=== PATIENT | female | born 1960 | race American Indian/Alaskan Native ===

== ENCOUNTER 2017-03-03 06:56 | Inpatient (IN) | payer OTHER ==
--- NOTE | 2017-02-27 10:21 | Anesthesia Consultation ---
Anesthesia Consult and Med Hx Date of service: 02/27/17 - Airway Anesthetic Teeth Evaluation: Good (gap in front teeth) Mallampati Class: Class II Intubation Access Assessment: Probably Good - Pulmonary Exam CTA: Yes - Cardiac Exam Cardiac Exam: RRR - Pre-Operative Health Status ASA Pre-Surgery Classification: ASA3 Proposed Anesthetic Plan: Epidural, Spinal, MAC - Pulmonary Hx Smoking: No Hx Asthma: Yes (INHALER PRN >5 YRS) Hx Sleep Apnea: No - Cardiovascular System Hx Hypertension: Yes (on valsartan/amlodipine) - Central Nervous System Hx Seizures: No CVA: No Hx Psychiatric Problems: No - Gastrointestinal Hx Gastroesophageal Reflux Disease: Yes (H/o gastric bypass 3 years ago, symptom stopped sp) - Endocrine Hx Renal Disease: No Hx Liver Disease: No Hx Non-Insulin Dependent Diabetes: No - Hematic Hx Sickle Cell Disease: No - Other Systems Hx Alcohol Use: No Hx Substance Use: No Hx Cancer: No Hx Obesity: Yes (BMI 41.5) - Additional Comments Anesthesia Medical History Comments: NAC
[2017-02-27 10:56] LABS: Basophils % (Auto) 0.6 % (0.0-1.8); Eosinophils % (Auto) 2.5 % (0.0-4.3); Hematocrit 36.8 % (30.3-42.9); Mean Corpuscular HGB Conc 33 % (30-34); Mean Corpuscular Hemoglobin 28 pg (28-32); Mean Corpuscular Volume 87 fl (79-97); Platelet Count 220 K/mm3 (140-440); Red Blood Count 4.24 M/mm3 (3.65-5.03); Red Cell Distribution Width 14.7 % (13.2-15.2); White Blood Count 5.3 K/mm3 (4.5-11.0)
[2017-02-27 11:14] LABS: Alanine Aminotransferase 14 units/L (7-56); Albumin 3.6 g/dL (3.9-5); Albumin/Globulin Ratio 0.9 %; Alkaline Phosphatase 90 units/L (35-129); Anion Gap 15 mmol/L; BUN/Creatinine Ratio 23.33; Bilirubin,Total 0.3 mg/dL (0.1-1.2); Blood Urea Nitrogen 14 mg/dL (7-17); Calcium 8.6 mg/dL (8.4-10.2); Carbon Dioxide 26 mmol/L (22-30); Glucose 92 mg/dL (65-100); Potassium 4.4 mmol/L (3.6-5.0); Sodium 138 mmol/L (137-145); Total Protein 7.5 g/dL (6.3-8.2)
[~2017-03-03 06:56] MED LIST: NACL 0.9% 1000 ML 1,000 ML IV SCH; PEPCID PO NR; VANCOMYCIN/NS 1 GM/250 ML 1 GM/250 ML BAG IV NR; VERSED IV NR
[2017-03-03] MEDS ORDERED: NACL BACTERIOSTATIC INFILTRATI ONE (08:18)
--- NOTE | 2017-03-03 08:26 | Anesthesia Day of Surgery ---
Anesthesia Day of Surgery - Day of Surgery Patient Examined: Yes Patient H&P Reviewed: Yes Patient is NPO: Yes Beta Blockers: No Pulmonary Clearance: No
[2017-03-03] MEDS ORDERED: DILAUDID IV PRN (08:27)
[2017-03-03] MEDS ORDERED: TRANSDERM-SCOP TD NR (08:28)
[2017-03-03] MEDS: VERSED IV NR ×2 (08:40→09:03)
[2017-03-03] MEDS ORDERED: PEPCID PO NR (09:00)
--- NOTE | 2017-03-03 09:06 | Admit Criteria Form ---
Admission Criteria Documentation: AMBULATORY SURGERY EXCEPTION CRITERIA Ambulatory Surgery Exception Criteria ( Place 'X' for any and all applicable criteria): Surgery or procedure performed on ambulatory basis may require inpatient stay for[A] ANY ONE of the following(1)(2)(3)(4)(5)(6)(7)(8)(9): [X] I. A preoperative situation, condition, or finding that warrants inpatient stay as indicated by ANY ONE of the following: [] a) Inpatient care needed because of severity of a disease or condition rather than the surgery (eg, severe cardiac or respiratory disease, severe infection) (15) (16 ) (17) (18) [] b) Emergent procedure (eg, angioplasty for acute ischemia)(19) [] c) Complex surgical approach or situation as indicated by ANY ONE of the following(3): [] i) Open approach needed instead of usual endoscopic, transcatheter, or other less invasive procedure [] ii) Difficult approach because of previous operation [] iii) Airway monitoring required after open neck procedures(20)(21) [] iv) Large mass requiring unusually extensive dissection [] v) Additional complicating feature requiring inpatient care (eg, drain management)(22(23): [X] d) Major surgery in a pt with high anesthetic risk as indicated by ANY ONE of the following (2)(3)(5)(7)(8): [X] i) ASA risk class III or higher (severe systemic disease impairing function) [D] [] ii) Advanced age (eg, older than 85 years)(14)(24) [] iii) Symptomatic heart failure(25) [] iv) Symptomatic asthma or COPD(8)(21) [] v) Morbid obesity with hemodynamic or respiratory problems(20)( 21)(26)(27) [] vi) Obstructive sleep apnea(20)(21) [] vii) Former premature infants who are younger than 60 weeks [] viii) High risk for severe postoperative abnormalities (eg, severe postoperative hypocalcemia after parathyroidectomy for severe hyperparathyroidism)(27)( 28) [] ix) Unstable angina(25) [] e) Drug-related risk requiring inpatient stay as indicated by ANY ONE of the following(5)(10)(14)(32)(33) [] i) Procedure requires discontinuing drugs or other therapy (eg , antiarrhythmic medication, antiseizure medication), which necessitates inpatient observation or treatment.(18)(31) [] ii) Major surgery and high risk drug use as indicated by ANY ONE of the following: [] 1) Active abuse of cocaine or similar drug [] 2) Monoamine oxidase inhibitor use [] 3) Other drug identified as posing risk [] f) Inadequate outpatient care situation as indicated by ANY ONE of the following(5)(10)(14)(32)(33) [] i) Patient lives remote from medical facility and procedure has urgent complication potential, and temporary nearby residence cannot be arranged [] ii) Patient will have postprocedure incapacitation and inadequate assistance at home, or alternative level of care cannot be arranged. [] iii) Patient will have long general anesthesia or procedure side effect resolution time, and competent person to stay with patient on first postoperative night at home or alternative level of care cannot be arranged. []iv) Other inadequate outpatient situation that cannot be handled by other means [] II. A perioperative event, condition, or finding that warrants inpatient stay as indicated by ANY ONE of the following (1)(2)(3): [] a) Inadequate physiologic recovery: cardiovascular, respiratory, or hemodynamic status not normal or near preoperative baseline(18) [] b) Hemodynamic instability [] c) Patient not alert with near normal or baseline mental status [] d) Temperature not normal or as expected and not appropriate for outpatient treatment of condition [] e) Ambulatory or appropriate activity level status not yet achieved post procedure [E](34)(35)(36) [] f) Operative site not appropriate (eg, unexpected or excessive drainage or bleeding) [] g) Postoperative effects not resolved or adequately managed (eg, significant pain or vomiting not appropriate for outpatient or next level of care)(10)(12) [] h) Complicating features requiring inpatient care as indicated by ANY ONE of the following(37): [] i) Severe complications of procedure (eg, bowel injury, airway compromise, vascular injury,severe hemorrhage) [] ii) Extensive (eg, dissection far beyond usual scope of procedure ) or prolonged (eg, 120 minutes beyond usual) surgery needed requiring inpatient postoperative care [] iii) Conversion to an open or complex procedure that requires inpatient care (eg, open vs laparoscopic cholecystectomy, abdominal vs vaginal hysterectomy)(38) [] iv) Comorbid condition or test result identified during or post procedure that requires inpatient care (7) [] v) Malignant hyperthermia(30) [] vi) Other complicating feature requiring inpatient care(22)(23) Inpatient stay may be needed until ALL of the following are present (1)(2)(3)(4) (5)(6)(10)(14)(33)(40): []a) Physiologic recovery: cardiovascular, respiratory, and hemodynamic status normal or near preoperative baseline []b) Hemodynamic stability []c) Patient alert, with near normal or baseline mental status []d) Temperature appropriate: patient afebrile or temperature appropriate for outpt treatment of condition []e) Activity level appropriate: ambulatory or appropriate activity level post procedure []f) Operative site appropriate as indicated by ALL of the following: []i) Site dry or with expected drainage []ii) Any blood noted is as expected for procedure. []g) Postoperative effects resolved or managed as indicated by ALL of the following: []i) Pain management appropriate for outpatient (or next level of) care(10) []ii) Minimal nausea and vomiting: if present, successfully treated with oral medication(12) []iii) Headache, dizziness, or drowsiness (if present) are mild. []h) Voiding status acceptable as indicated by ANY ONE of the following: []i) Voiding spontaneously []ii) No voiding but instructions given for follow-up in 6 to 8 hours []iii) Urinary catheter in place, and instructions given for follow-up []i) Complicating features requiring inpatient care manageable at a lower level of care(37) []j) Comorbid conditions manageable at a lower level of care(37) The original [facility] content created by [facility] has been revised. The portions of the content which have been revised are identified through the use of italic text or in bold, and [email or web address] ?.?? has neither reviewed nor approved the modified material. All other unmodified content is copyright [facility]. Please see references footnoted in the original [facility] edition 2016 Admission Criteria Met: Yes
[2017-03-03] MEDS ORDERED: XYLOCAINE 1% 20 mL ONE (09:16)
[2017-03-03] MEDS ORDERED: MARCAINE 0.5% 30 ML INFILTRATI ONE (09:17)
[2017-03-03] MEDS ORDERED: DECADRON ONE ×2 (09:17→10:36)
[2017-03-03] MEDS ORDERED: VERSED IV PRN (09:33)
[2017-03-03] MEDS ORDERED: XYLOCAINE MPF 2% ONE (10:19)
--- NOTE | 2017-03-03 10:19 | Short Stay Summary ---
Short Stay Documentation Date of service: 03/03/17 - History H&P: obtained from office - Allergies and Medications Current Medications: Allergies Penicillins Allergy (Verified 08/16/13 11:25) Unknown Home Medications Medication Instructions Recorded Confirmed Last Taken Type amLODIPine/VALSARTAN [Exforge 1 each PO DAILY 08/16/13 03/03/17 03/03/17 06:30 History 5-320 mg Tablet] Acetaminophen [Tylenol] 325 mg PO Q6HR PRN 02/25/17 03/03/17 02/26/17 History Diclofenac Sodium 75 mg PO DAILY 02/25/17 03/03/17 02/24/17 History Ibuprofen [Motrin 800 MG tab] 1 tab PO DAILY PRN 02/25/17 02/25/17 02/10/17 History Active Medications Famotidine (Pepcid) 20 mg PO PREOP NR Stop: 03/03/17 23:59 Last Admin: 03/03/17 09:11 Dose: 20 mg Fentanyl (Sublimaze) 50 mcg IV Q5MIN PRN PRN Reason: Pain , Severe (7-10) Stop: 03/03/17 16:00 Hydromorphone HCl (Dilaudid) 0.25 mg IV Q10MIN PRN PRN Reason: Pain, Moderate (4-6) Stop: 03/03/17 18:00 Sodium Chloride (Nacl 0.9% 1000 Ml) 1,000 mls @ 100 mls/hr IV DIRECT MANDO Last Admin: 03/03/17 08:30 Dose: 100 mls/hr Vancomycin HCl (Vancomycin/Ns 1 Gm/250 Ml) 1 gm in 250 mls @ 166.667 mls/hr IV PREOP NR PRN Reason: Protocol Stop: 03/03/17 23:59 Last Admin: 03/03/17 09:10 Dose: 166.667 mls/hr Midazolam HCl (Versed) 2 mg IV PREOP NR Stop: 03/03/17 23:59 Last Admin: 03/03/17 09:03 Dose: 2 mg Midazolam HCl (Versed) 2 mg IV PREOP PRN PRN Reason: Anxiety Stop: 03/03/17 23:59 Scopolamine (Transderm-Scop) 1 each TD ONCE NR Stop: 03/03/17 18:00 Last Admin: 03/03/17 08:49 Dose: 1 each - Brief post op/procedure progress note Date of procedure: 03/03/17 Pre-op diagnosis: medial left knee arthritis Post-op diagnosis: same Procedure: left partial knee arthroplasty Anesthesia: [facility], [facility] Surgeon: PAOLO JACOBS Front Office Director: DMITRI GARCIA Estimated blood loss: other Pathology: list Specimen disposition: to lab (autologous 400 cc transfused) - Disposition Condition at discharge: Stable Disposition: DISCHARGED TO HOME OR SELFCARE Short Stay Discharge Plan Follow up with: EBONIE MIRANDA MD [Primary Care Provider] - 7 Days
[2017-03-03] MEDS ORDERED: DEPO-MEDROL ONE (10:20)
[2017-03-03] MEDS ORDERED: SUBLIMAZE ONE (10:20)
[2017-03-03] MEDS ORDERED: DIPRIVAN 10 MG/ML IV ONE (10:20)
[2017-03-03] MEDS ORDERED: NACL ONE (10:21)
[2017-03-03] MEDS ORDERED: TRANEXAMIC ACID ONE (10:21)
[2017-03-03] MEDS ORDERED: TORADOL ONE (10:21)
[2017-03-03] MEDS ORDERED: MARCAINE-EPI 0.5%-1:200,000 INFILTRATI ONE ×4 (10:22→11:31)
[2017-03-03] MEDS ORDERED: MORPHINE ONE (10:22)
[2017-03-03] MEDS ORDERED: NEOSPORIN GU IR ONE ×2 (10:23→11:02)
[2017-03-03] MEDS ORDERED: ZOFRAN ONE (10:36)
[2017-03-03] MEDS ORDERED: DEPO-MEDROL INTRA-ARTI ONE ×2 (11:02→11:31)
[2017-03-03] MEDS ORDERED: TORADOL IV ONE ×2 (11:02→11:31)
[2017-03-03] MEDS ORDERED: MORPHINE IM ONE ×2 (11:02→11:31)
[2017-03-03] MEDS ORDERED: NACL 0.9% IR ONE (11:03)
[2017-03-03] MEDS ORDERED: NACL INFILTRATI ONE (11:03)
[2017-03-03] MEDS ORDERED: TRANEXAMIC ACID IV ONE ×2 (11:04→11:31)
--- NOTE | 2017-03-03 12:05 | Post Anesthesia Evaluation ---
- Post Anesthesia Evaluation Patient Participated: Yes Airway Patent: Yes Stable Respiratory Function: Yes Nausea/Vomiting: No Temp > 96.8F: Yes Pain Manageable: Yes Adequeate Hydration: Yes Anesthesia Complications: No
[2017-03-03] MEDS: SUBLIMAZE IV PRN ×2 (12:32→12:54)
--- NOTE | 2017-03-03 12:48 | Post Anesthesia Evaluation ---
- Post Anesthesia Evaluation Patient Participated: No Airway Patent: Yes Stable Respiratory Function: Yes Nausea/Vomiting: No Temp > 96.8F: Yes Pain Manageable: Yes Adequeate Hydration: Yes Anesthesia Complications: No Block Receding Appropriately: Not Applicable Patient on Ventilator: No
[2017-03-03 14:03] VITALS: BP 139/89
--- NOTE | 2017-03-04 14:09 | Operative Report ---
PREOPERATIVE DIAGNOSIS: Osteoarthritis, medial compartment of the left knee joint. POSTOPERATIVE DIAGNOSIS: Osteoarthritis, medial compartment of the left knee joint. PROCEDURE: Partial medial knee replacement arthroplasty of the knee. SURGEON: Ana Cristina Choi MD ACTOR UNDERSTUDY: Trina Flores RN ANESTHESIA: Local block, general. COMPLICATIONS: None. BRIEF HISTORY: The patient is a 56-year-old female who was admitted to hospital secondary to discomfort and pain and instability on the medial side of the joint. The patient is scheduled for the above-mentioned procedure. PROCEDURE IN DETAIL: Once the patient was in surgical room, a time-out was carried out to identify the patient and procedure, prepping and draping of the patient was done in usual fashion. Procedure was carried out by a 10 cm incision in the medial side of the joint. The leg was elevated, exsanguination was carried out following this by the application of the tourniquet to 350 mmHg. The incision was carried out to subcutaneous tissues. The fascia was along the length of the wound. A vastus approach carried out into the joint. Once this was done, the procedure was continued by using the [employer] instrumentation, cutting 4 mm of the tibial surface. This was done without any problems. The flexion and extension gaps were measured and using the same instrumentation, preparation of the femur and tibia were done. The #3 femur and #2 tibia with an 8 mm tibial spacer fitted the best. Once this was done, the components were brought into the room. The components were inserted. Prior to the insertion of the component, the knee was infiltrated with Marcaine with epinephrine dilute solution . Once this was done, the components were assembled, the procedure terminated, wound irrigated and closed by closing the knee capsule with Vicryl, subcutaneous tissues in the same fashion, skin with skin clips, a compression bandage was applied. The patient tolerated the procedure well. There were no complications. JOB# [id number] ALMA/TAMARA
== END 2017-03-03 14:25 | disposition home or self-care (01) | DRG 470 ==
LOC: 3A 06:56
PROC: 0SRD0LZ Replacement of Left Knee Joint with Medial Unicondylar Synthetic Substitute, Open Approach (ICD-10-PCS; principal; 2017-03-03)
DX: M17.12 Unilateral primary osteoarthritis, left knee (principal); I10 Essential (primary) hypertension; K21.9 Gastro-esophageal reflux disease without esophagitis; E66.9 Obesity, unspecified; Z68.41 Body mass index [BMI] 40.0-44.9, adult
CPT/HCPCS: 36415; 64450; 80053; 85025; 88305; 93005; 93010; C1776; J1030; J1100; J1885; J2250; J2270; J2405; J2704; J3010; J3370; J7030